=== PATIENT | female | born 1950 | race Caucasian/White ===

== ENCOUNTER 2017-07-04 05:16 | Day surgery (SDC) | payer MEDICARE ==
[2017-07-03 08:34] LABS: HEMATOCRIT 47.3 % (36.0-48.0); HEMOGLOBIN 15.3 g/dL (12-16); MCH 29.5 pg (26.0-34.0); MCHC 32.3 g/dL (31.0-37.0); MCV 91.3 fL (80.0-100.0); MEAN PLATELET VOLUME 10.4 fL (7.4-10.4); RBC 5.18 10x6/uL (4.00-5.40); RDW 13.3 % (11.5-14.5); WBC 6.4 10x3/uL (4.8-10.8)
[~2017-07-04] VITALS: Ht 157.5 cm; Wt 90.7 kg
--- NOTE | ~2017-07-04 | OP ---
PATIENT NAME: BLAISE ZHENG MEDICAL RECORD: [id number] :52 [facility] AD[facility] DATE: SURGEON: AILYN SU MD DATE OF OPERATION: 07/04/2017 PREOPERATIVE DIAGNOSIS: Meralgia paresthetica of the right thigh. POSTOPERATIVE DIAGNOSIS: Meralgia paresthetica of the right thigh. PROCEDURE: Release of the lateral femoral cutaneous nerve on the right using ultrasound. GRAIN FARMWORKER SURGEON: Ailyn Su MD ANESTHESIA: General. INTRAOPERATIVE COMPLICATIONS: None. SUMMARY OF PATHOLOGIC FINDINGS: The patient had a very tight fascial protrusion of the lateral femoral cutaneous nerve just medial to the ASIS. OPERATIVE SUMMARY IN DETAIL: After obtaining the appropriate preoperative orthopedic surgery consent as well as anesthetic consultation, evaluation and clearance, the patient was brought to the operating room and placed on the operating table in supine position. After adequate general laryngeal mask airway was administered, the patient's right hip was prepped and draped in routine sterile fashion. Incision was made using ultrasound guidance directly over the fascial penetration of the lateral femoral cutaneous nerve. This was carefully dissected down to the lateral femoral cutaneous nerve was identified and the fascial penetration marked lateral from the cutaneous nerve was released in its entirety. Having completed this, the wound was irrigated and closed with 2-0 Vicryl followed by 4-0 Prolene in running fashion. Sterile dressings were applied. The patient was awakened, taken to recovery room in stable condition. All final needle and sponge counts were correct. TRANSINT:[id number] Voice Confirmation ID: [id number] DOCUMENT ID: [id number] AILYN SU MD at 1118 CC: [id number] DICTATION DATE: 07/04/17 0953 MAIL HANDLER ASSISTANT: 07/04/17 1106 REG [facility] [address] [id number]
[~2017-07-04 05:16] MED LIST: ACETAMINOPHEN500 M1 PO; ATARAX 25 MG TA25 MG PO; BUPROPION HCL150 M1 PO; GLUCOPHAGE500 MG PO; HYDROCODONE-APA1 TAB PO; KENALOG IN ORABA5 GM TOPICAL; NEURONTIN 300300 MG PO; PEPCID20 MG PO; PLAVIX75 MG PO; PRAVACHOL40 MG PO; TRAZODONE HCL50 MG PO; XANAX0.25 MG PO
[2017-07-04] MEDS ORDERED: LEVOTHYROXINE50 MCG PO (06:24)
[2017-07-04 06:26] VITALS: Ht 157.5 cm; Wt 90.7 kg
[2017-07-04] MEDS ORDERED: HYDROCODONE-APA1 TAB PO (09:03)
== END 2017-07-04 11:30 | disposition home or self-care (01) ==
LOC: D.OPS 05:16 → D.PAN 07:30 → D.OPS 11:30
PROVIDERS: Anesthesiology
DX: G57.11 Meralgia paresthetica, right lower limb (principal); K21.9 Gastro-esophageal reflux disease without esophagitis; E11.9 Type 2 diabetes mellitus without complications; E03.9 Hypothyroidism, unspecified; Z01.812 Encounter for preprocedural laboratory examination

== ENCOUNTER → 2017-09-05 07:38 | Outpatient (CLI) | payer MEDICARE, OTHER ==
[2017-07-04 06:26] VITALS: BMI 36.6
[~2017-09-05 07:38] MED LIST changes: +LEVOTHYROXINE50 MCG PO
== END | disposition home or self-care (01) ==
LOC: D.US 09-03 09:40
DX: R10.13 Epigastric pain (principal); K90.49 Malabsorption due to intolerance, not elsewhere classified

== ENCOUNTER → 2017-09-19 08:03 | Outpatient (CLI) | payer MEDICARE, OTHER ==
[2017-07-04 06:26] VITALS: BMI 36.6
== END | disposition home or self-care (01) ==
LOC: D.CT 08:03
DX: N28.1 Cyst of kidney, acquired (principal)

== ENCOUNTER → 2017-10-10 07:37 | Outpatient (CLI) | payer MEDICARE, OTHER ==
[2017-07-04 06:26] VITALS: BMI 36.6
== END | disposition home or self-care (01) ==
LOC: D.NM 09-27 11:00
DX: R10.11 Right upper quadrant pain (principal)

== ENCOUNTER 2018-05-12 08:00 | Outpatient (CLI) | payer MEDICARE, OTHER ==
[2017-07-04 06:26] VITALS: BMI 36.6
== END 2018-05-12 09:00 | disposition home or self-care (01) ==
LOC: D.MAMMO 08:00
DX: Z12.31 Encounter for screening mammogram for malignant neoplasm of breast (principal)

== ENCOUNTER → 2018-08-12 12:01 | Outpatient (CLI) | payer MEDICARE, OTHER ==
[2017-07-04 06:26] VITALS: BMI 36.6
--- NOTE | ~2018-08-12 | ST ---
PATIENT:BLAISE ZHENG MEDICAL RECORD: [id number] SEX: F LOCATION:[facility] ORDER #: ADMISSION DATE: 08/12/18 AGE OF PATIENT: 68 REFERRING PHYSICIAN: INTERPRETING PHYSICIAN: NINO MERINO MD DATE OF SERVICE: 08/12/2018 PROCEDURE: Nuclear stress test. INDICATION: Angina, hyperlipidemia, diabetes. She was exercised on standard Fidencio protocol for 5 minutes achieving greater than 85% max target heart rate response with 33 mCi of sestamibi injected at peak stress. Rest images were done previously with 11 mCi. FINDINGS: Gated SPECT reveals preserved ejection fraction at 69% with good wall motion and thickening and brightening throughout all segments. SPECT imaging Cardiolite was used as myocardial fusion agent. There is homogeneous uptake throughout all segments at rest and stress with no evidence of inducible ischemia or previous infarction. OVERALL IMPRESSION: 1. This is a normal nuclear stress test with no evidence of inducible ischemia or previous infarction. 2. Gated SPECT reveals a preserved ejection fraction at 69%. In this patient with ongoing symptomatology, the current scan does not suggest the presence of hemodynamically significant coronary artery disease. Evaluate noncardiac etiology of chest pain. TRANSINT:[id number] Voice Confirmation ID: [id number] DOCUMENT ID: [id number] NINO MERINO MD CC: LAMAR BLUM [id number] DICTATION DATE: 08/15/18 1236 STERILE PROCESSING MANAGER: 08/16/18 0046 DEP CLI 08/12/18 [facility] [address] [place] [address]
== END | disposition home or self-care (01) ==
LOC: D.HCCARDIO 07-29 10:30
PROVIDERS: ATTEND Internal Medicine Interventional Cardiology
DX: I20.9 Angina pectoris, unspecified (principal)